=== PATIENT | female | born 1955 | race Caucasian/White ===

== ENCOUNTER 2020-09-23 15:52 | Inpatient (IN) | payer OTHER ==
[~2020-09-23] VITALS: Ht 167.6 cm; Wt 77.4 kg
[~2020-09-23 15:52] MED LIST: AMLO5 PO; DIVIGEL1 EAC1 TD; FURO20 PO; LOSA50 PO; MED FOR DEPRESSION; MEDR5 PO; METO50; OXYACE5T PO
[2020-09-23 17:03] LABS: BASOPHILS ABSOLUTE AUTO 0.02 K/mm3 (0.00-0.23); BASOPHILS PERCENT AUTO 0 % (0-2); EOSINOPHILS ABSOLUTE AUTO 0.11 K/mm3 (0.00-0.68); EOSINOPHILS PERCENT AUTO 2 % (0-6); Hemoglobin 11.1 g/dL (11.5-16.0); IMMATURE GRAN ABSOLUTE AUTO 0.06 K/mm3 (0.00-0.10); IMMATURE GRAN PERCENT AUTO 1 % (0-1); LYMPHOCYTES ABSOLUTE AUTO 1.69 K/mm3 (0.84-5.20); LYMPHOCYTES PERCENT AUTO 24 % (21-46); MONOCYTES ABSOLUTE AUTO 0.83 K/mm3 (0.16-1.47); MONOCYTES PERCENT AUTO 12 % (4-13); Mean Corpuscular HGB 33.7 pg (26.0-34.0); Mean Corpuscular HGB Conc 33.6 g/dL (31.5-36.5); Mean Corpuscular Volume 100 fL (80-100); Mean Platelet Volume 9.9 fL (9.1-12.4); NEUTROPHILS ABSOLUTE AUTO 4.31 K/mm3 (1.96-9.15); NEUTROPHILS PERCENT AUTO 61 % (41-73); Platelet Count 415 K/mm3 (150-400); RDW Coefficient Variation 14.2 % (11.7-14.2); RDW Standard Deviation 51.9 fL (35.1-46.3); Red Blood Cell Count 3.29 M/mm3 (3.80-5.20); White Blood Cell Count 7.02 K/mm3 (4.00-11.30)
[2020-09-23 17:17] LABS: Acetaminophen, Random <2.0 ug/mL (10.0-30.0); Alanine Aminotransfer (ALT/SGP 60 U/L (12-78); Albumin, Blood 2.7 g/dL (3.4-5.0); Albumin/Globulin Ratio 0.5 (0.8-1.8); Alk Phos 154 U/L (50-136); Anion Gap 7 mmol/L (6-16); Aspartate Aminotrans (AST/SGOT 70 U/L (12-37); Bilirubin, Total 0.7 mg/dL (0.1-1.0); Blood Urea Nitrogen 89 mg/dL (8-24); Bun/Creatinine Ratio 24.3 (12.0-20.0); CO2, Blood 25 mmol/L (21-32); CPK Creatine Kinase 434 U/L (26-193); Calcium, Blood 10.1 mg/dL (8.5-10.1); Chloride, Blood 96 mmol/L (98-108); Creatine Kinase MB 2.6 ng/mL (0.0-3.6); Creatine Kinase MB Index 0.6 (0.0-4.0); Creatinine, Blood 3.67 mg/dL (0.40-1.00); Ethanol (Alcohol), Blood, Med <3 mg/dL; Globulin, Blood 5.2 g/dL (2.2-4.0); Glomerular Filtration Rate 13 (60-); Glucose, Blood 125 mg/dL (70-99); Magnesium, Blood 2.4 mg/dL (1.6-2.4); Potassium, Blood 4.7 mmol/L (3.5-5.5); Salicylate <1.7 mg/dL (2.8-20.0); Sodium, Blood 128 mmol/L (136-145); Total Protein, Blood 7.9 g/dL (6.4-8.2); Troponin I <0.015 ng/mL (0.000-0.040)
[2020-09-23 17:25] LABS: Source, Urine Catheter
[2020-09-23 18:20] LABS: Appearance, Urine Cloudy (Clear); Bilirubin, Urine Neg (Neg); Blood, Urine 2+ (Neg); Color, Urine Yellow (P-Yellow); Glucose Qualitative, Urine Neg (Neg); Ketones, Urine Neg (Neg); Leukocyte Esterase, Urine 3+ (Neg); Nitrite, Urine Pos (Neg); Protein, Urine 2+ (Neg); Specific Gravity, Urine 1.015 (1.003-1.022); Urobilinogen, Urine NORM (Normal)
[2020-09-23 18:37] LABS: U Amphetamine Screen Not Detected; U Barbituate Screen Not Detected; U Benzodiazapine Screen Not Detected; U Buprenorphine Screen Not Detected; U Cannabinoids Screen Not Detected; U Cocaine Screen Not Detected; U Methadone Screen Not Detected; U Methamphetamine Screen Not Detected; U Opiates Screen DETECTED; U Oxycodone Screen Not Detected; U Phencyclidine Screen Not Detected; U Propoxyphene Screen Not Detected
[2020-09-23 18:52] LABS: Red Blood Cells, Urine TNTC /hpf (0-2); Squamous Epithelial Cells Not Seen /hpf (Few); White Blood Cells, Urine TNTC /hpf (0-5)
[2020-09-23 18:53] LABS: Bacteria Many /hpf; Renal Epithelial Few /hpf (0-Rare); Transitional Epithelial Cells Mod /hpf (0-Rare)
[2020-09-23] MEDS ORDERED: TORSE20 PO (19:16)
[2020-09-23] MEDS ORDERED: POTA10T PO (19:17)
[2020-09-23] MEDS ORDERED: THERA-D2000 UNIT PO (19:17)
[2020-09-23] MEDS ORDERED: AMLO5 PO (19:17)
[2020-09-23] MEDS ORDERED: METO100ER PO (19:17)
[2020-09-24 05:08] LABS: BASOPHILS ABSOLUTE AUTO 0.01 K/mm3 (0.00-0.23); BASOPHILS PERCENT AUTO 0 % (0-2); EOSINOPHILS ABSOLUTE AUTO 0.03 K/mm3 (0.00-0.68); EOSINOPHILS PERCENT AUTO 0 % (0-6); Hematocrit 31.4 % (33.0-51.0); Hemoglobin 10.6 g/dL (11.5-16.0); IMMATURE GRAN ABSOLUTE AUTO 0.05 K/mm3 (0.00-0.10); IMMATURE GRAN PERCENT AUTO 1 % (0-1); LYMPHOCYTES ABSOLUTE AUTO 1.16 K/mm3 (0.84-5.20); LYMPHOCYTES PERCENT AUTO 14 % (21-46); MONOCYTES ABSOLUTE AUTO 0.63 K/mm3 (0.16-1.47); MONOCYTES PERCENT AUTO 8 % (4-13); Mean Corpuscular HGB 33.7 pg (26.0-34.0); Mean Corpuscular HGB Conc 33.8 g/dL (31.5-36.5); Mean Corpuscular Volume 100 fL (80-100); Mean Platelet Volume 9.5 fL (9.1-12.4); NEUTROPHILS ABSOLUTE AUTO 6.17 K/mm3 (1.96-9.15); NEUTROPHILS PERCENT AUTO 77 % (41-73); Platelet Count 337 K/mm3 (150-400); RDW Coefficient Variation 14.1 % (11.7-14.2); RDW Standard Deviation 51.4 fL (35.1-46.3); Red Blood Cell Count 3.15 M/mm3 (3.80-5.20); White Blood Cell Count 8.05 K/mm3 (4.00-11.30)
[2020-09-24 05:35] LABS: Albumin, Blood 2.3 g/dL (3.4-5.0); Albumin/Globulin Ratio 0.5 (0.8-1.8); Bilirubin, Total 0.7 mg/dL (0.1-1.0); Bun/Creatinine Ratio 27.8 (12.0-20.0); Creatinine, Blood 2.27 mg/dL (0.40-1.00); Globulin, Blood 4.5 g/dL (2.2-4.0); Potassium, Blood 4.1 mmol/L (3.5-5.5); Total Protein, Blood 6.8 g/dL (6.4-8.2)
--- NOTE | 2020-09-24 05:42 | NUR ---
SUMMARY PT IS A/OX 2-3. PT CONFUSION WAXES AND WANES. PT HAS BEEN YELLING OUT AT TIMES AND WHEN ASKED WHAT IS WRONG SHE RESPONDS "NOTHING". PT IS INCONTINET. PT HAS BEEN VOIDING FREQUENTLY. PT HAS REQUIRED FREQUENT ATTENDS CHANGE. PT HAS BEEN DRINKING SOME FLUIDS. PT CURRENTLY AWAKE IN NO DISTRESS. CALL LIGHT IN REACH AND BED ALARM ON.
--- NOTE | 2020-09-24 15:52 | NUR ---
ADMIT: 09/23/20 DISCHARGE: DX: Altered mentation, sepsis, UTI CC:kwilcox HUI CALL: RESIDENCE: home CAREGIVER:Patience Velasco, Friend, DX: HTN, COPD, sciatica, menopausal DME: 4WW CCM: none HOME HEALTH: None SUMMARY: Admit: 09/23/20 09/24/20- per chart review with Dr. Cevallos, no plan for d/c today. She reports that pt's was found down for 10 days on the floor. Pt did get some water and food during this time. was not around to confirm this. reported later in the day that pt quit drinking alcohol about 4 months ago. Pt UDS + Opi. Pt has not been prescribed any opiates according to [place]. When she confronted the pt, she at first stated that she was not going to say anything but then she disclosed that she got opiates from her friend but she could not remember how many she got. Pt has had confusion on and off through out the day and yelling out. When asked what she needed, would respond "nothing." Per PT note, [place] with a roommate. Recommendation is for SNF/extensive rehab and they expect that pt will improve as her UTI/sepsis clears.-basilio
--- NOTE | 2020-09-24 19:20 | NUR ---
PT ALERT TO SELF. CONFUSED THROUGHOUT SHIFT. CALLS OUT OFTEN. SHE IS REDIRECTABLE. SPOKE WITH SO, HE REPORTS CLIENT QUIT DRINKING 4 MO AGO. HE REPORTS INCREASING IMOBILITY FOR THE LAST 2MO. PT REPORTS PAIN IN ALL EXTREMITIES WITH MOVEMENT. UNABLE TO TRANSFER TODAY. SO REPORTS THEY HAVE SEE MD CONCERNING THIS BUT IS UNABLE TO REPORT WHO. HE REPORTS PT WITH 2 RECENT EYE INFECTIONS TREATED WITH ANTIBIOTICS. DR. SERVIN NOTIFIED OF SO CONCERNS. PT WITH FAIR APPETITE TODAY, THIS RN PUSHED FLUIDS THROUGHOUT SHIFT. BM TODAY. REPORT GIVEN TO NOC RN
--- NOTE | 2020-09-25 05:19 | NUR ---
SUMMARY PT CIWAS AT BEGINNING OF SHIFT 8 AND 9. PT TX PER EMAR WITH PT RELAXING AND ABLE TO SLEEP. PT HAD VOIDED AT BEGINNING OF SHIFT. PT FOUND TO BE RETAINING AND BLADDER SCAN SHOWED >[address] LOPEZ CALLED AND ORDERED STRIGHT CATH AND RECHECK IN 6 HRS. PT AWAKE AND IN NO DISTRESS. CALL LIGHT IN REACH AND BED ALARM ON.
[2020-09-25 05:45] LABS: Bun/Creatinine Ratio 28.3 (12.0-20.0); Calcium, Blood 9.2 mg/dL (8.5-10.1); Creatinine, Blood 1.45 mg/dL (0.40-1.00); Potassium, Blood 3.5 mmol/L (3.5-5.5)
--- NOTE | 2020-09-25 06:29 | NUR ---
0530 PT STRIGHT CATHED. 600 ML REMOVED. PT VOIDED SMALL AMOUNT PRIOR TO CATH. PT BLADDER SCAN SHOWED 580ML REMAINING. PT ALSO HAD LITTLE PO FLUID INTAKE NOTED.
--- NOTE | 2020-09-25 15:41 | NUR ---
09/25/20- per chart review with Dr. Cevallos, pt is doing worse today. She is screaming if touched stating that she is in pain. Pt is retaining urine and was started on antibiotics. Current CIWA = 3. PT not able to see pt due to her unwillingness to participate in care. No d/c plan at this time. -basiloi
--- NOTE | 2020-09-25 16:38 | NUR ---
SHIFT SUMMARY- PT SLEPT MOST OF THIS SHIFT. SHE YELLS OUT WHEN WOKEN UP. SHE REFUSED ALL ORAL MEDICATIONS THIS SHIFT. REFUSED TO WORK WITH THERAPY. PALATIVE CARE COLSULT ORDERED. TOUCHED BASE WITH TASH JOSEPH ABOUT THE SITUATION WITH THIS PT. HER CIWAS HAVE BEEN STABLE THIS SHIFT. POST VOID BLADDERSCAN SHOWED 300ML. SHE IS REFUSING MEALS THIS SHIFT. PROVIDED SIPS OF WATER WHEN PT WAS AWAKE. SHE WENT FOR AN XRAY OF THE SHOULDER THIS AFTERNOON. HER BED IS IN THE LOW POSITION AND CALL LIGHT IS WITIN REACH.
[2020-09-26 05:27] LABS: BASOPHILS ABSOLUTE AUTO 0.02 K/mm3 (0.00-0.23); BASOPHILS PERCENT AUTO 0 % (0-2); EOSINOPHILS ABSOLUTE AUTO 0.11 K/mm3 (0.00-0.68); EOSINOPHILS PERCENT AUTO 2 % (0-6); Hematocrit 29.5 % (33.0-51.0); Hemoglobin 9.6 g/dL (11.5-16.0); IMMATURE GRAN ABSOLUTE AUTO 0.05 K/mm3 (0.00-0.10); IMMATURE GRAN PERCENT AUTO 1 % (0-1); LYMPHOCYTES ABSOLUTE AUTO 2.31 K/mm3 (0.84-5.20); LYMPHOCYTES PERCENT AUTO 38 % (21-46); MONOCYTES ABSOLUTE AUTO 0.69 K/mm3 (0.16-1.47); MONOCYTES PERCENT AUTO 11 % (4-13); Mean Corpuscular HGB 33.2 pg (26.0-34.0); Mean Corpuscular HGB Conc 32.5 g/dL (31.5-36.5); Mean Corpuscular Volume 102 fL (80-100); Mean Platelet Volume 9.3 fL (9.1-12.4); NEUTROPHILS ABSOLUTE AUTO 2.87 K/mm3 (1.96-9.15); NEUTROPHILS PERCENT AUTO 48 % (41-73); Platelet Count 296 K/mm3 (150-400); RDW Coefficient Variation 14.4 % (11.7-14.2); RDW Standard Deviation 54.3 fL (35.1-46.3); Red Blood Cell Count 2.89 M/mm3 (3.80-5.20); White Blood Cell Count 6.05 K/mm3 (4.00-11.30)
[2020-09-26 06:10] LABS: Alanine Aminotransfer (ALT/SGP 36 U/L (12-78); Albumin, Blood 2.2 g/dL (3.4-5.0); Albumin/Globulin Ratio 0.5 (0.8-1.8); Alk Phos 166 U/L (50-136); Anion Gap 7 mmol/L (6-16); Aspartate Aminotrans (AST/SGOT 46 U/L (12-37); Bilirubin, Total 0.4 mg/dL (0.1-1.0); Blood Urea Nitrogen 18 mg/dL (8-24); Bun/Creatinine Ratio 21.1 (12.0-20.0); CO2, Blood 24 mmol/L (21-32); Calcium, Blood 8.5 mg/dL (8.5-10.1); Chloride, Blood 108 mmol/L (98-108); Creatinine, Blood 0.85 mg/dL (0.40-1.00); Globulin, Blood 4.5 g/dL (2.2-4.0); Glomerular Filtration Rate >60 (60-); Glucose, Blood 106 mg/dL (70-99); Potassium, Blood 3.3 mmol/L (3.5-5.5); Sodium, Blood 139 mmol/L (136-145); Total Protein, Blood 6.7 g/dL (6.4-8.2)
--- NOTE | 2020-09-26 06:42 | NUR ---
SUMMARY PT REMAINS CONFUSED. PT HAD NOTED BM'S THIS SHIFT. PT REQUIRED STRIGHT CATH. PT HAS BEEN TRYING TO GET OUT OF BED. PT PLACED IN AJNUSZ VEST FOR SAFETY. PROVIDER AL ORDERED RESTRAINT. PT CONTINUES TO YELL OUT AND IS UNCOOPERATIVE. PT CURRENTLY SLEEPING AND IN NO DISTRESS. CALL LIGHT IN REACH AND BED ALARM ON.
--- NOTE | 2020-09-26 13:10 | NUR ---
09/26/20- Per chart review, urine culture came back positive for Ecoli. Pt has now admitted that she drinks more than a pint of Vodka per day. Pt is currently in alcohol withdrawal and she is noted to be having aggressive behaviors wtih staff, high fall risk, impulsive behavior and confusion/disoriented, so she has been put in restraints. CIWA are being being done assess pt's withdraw. PT tried to see pt today and she was yelling at therapist and unwilling to participate in therapy. -basilio
[2020-09-26 16:18] LABS: Source, Urine Catheter
[2020-09-26 16:30] LABS: Bilirubin, Urine Neg (Neg); Blood, Urine Neg (Neg); Glucose Qualitative, Urine 1+ (Neg); Ketones, Urine Neg (Neg); Leukocyte Esterase, Urine 1+ (Neg); Nitrite, Urine Neg (Neg); Protein, Urine 2+ (Neg); Urobilinogen, Urine NORM (Normal)
[2020-09-26 17:15] LABS: Appearance, Urine Clear (Clear); Color, Urine Pale Yellow (P-Yellow)
[2020-09-26 17:18] LABS: Bacteria Few /hpf; Squamous Epithelial Cells Not Seen /hpf (Few)
--- NOTE | 2020-09-26 19:26 | NUR ---
SHIFT SUMMARY- PT IS CONFUSED, SHE IS PAINFUL WHEN MOVED. SHE SLEPT INTERMITENTLY THROUGHOUT THIS SHIFT. SHE IS HAVING INC BM. LETITIA WAS PLACED THIS SHIFT FOR RETENTION. HER WAS AT BEDSIDE THIS AFTERNOON, DR. JAMA SPOKE WITH PT AND AT THAT TIME. HER PULSE WAS ELEVATED THIS SHIFT AND HER HOME METOPROLOL WAS RESTARTED. SHE IS IN RESTRAINTS DUE TO BEING IMPULSIVE AND ATTEMPTING TO GET OUT OF BED. HER BED IS IN THE LOW POSITION AND CALL LIGHT IS WITIN REACH.
--- NOTE | 2020-09-27 03:03 | NUR ---
SHIFT SUMMARY NO ACUTE CHANGES OVERNIGHT. PT REMAIN CONFUSED. SHE YELLS/SCREAM INTERMITTENTLY. SLEPT AFTER MIDNIGHT. PT IS ALERT AND ORIENT TO SELF AND . SHE HAD A 1 MED BROWN LOSE BOWEL MOVEMENT, LINEN WERE CHANGED. DONG STILL IN PLACED, INTACT, PATENT, GRAVITY ON FLOOR. PT IS ON RESTRAINTS R/T BEING IMPULSIVE AND ATTEMPTING TO GET OUT BED. CIWA SCORE FROM 0-1 ASSESSED EVERY 2 HRS. REPORT PAIN, MEDICATED ONCE FOR FENTANYL 25MCG. CALL LIGHT WITHIN REACH. BED IN LOW POSITION.
[2020-09-27 05:17] LABS: BASOPHILS ABSOLUTE AUTO 0.02 K/mm3 (0.00-0.23); BASOPHILS PERCENT AUTO 0 % (0-2); EOSINOPHILS ABSOLUTE AUTO 0.16 K/mm3 (0.00-0.68); EOSINOPHILS PERCENT AUTO 2 % (0-6); Hematocrit 27.7 % (33.0-51.0); Hemoglobin 9.2 g/dL (11.5-16.0); IMMATURE GRAN ABSOLUTE AUTO 0.05 K/mm3 (0.00-0.10); IMMATURE GRAN PERCENT AUTO 1 % (0-1); LYMPHOCYTES ABSOLUTE AUTO 2.61 K/mm3 (0.84-5.20); LYMPHOCYTES PERCENT AUTO 37 % (21-46); MONOCYTES ABSOLUTE AUTO 0.75 K/mm3 (0.16-1.47); MONOCYTES PERCENT AUTO 11 % (4-13); Mean Corpuscular HGB 33.8 pg (26.0-34.0); Mean Corpuscular HGB Conc 33.2 g/dL (31.5-36.5); Mean Corpuscular Volume 102 fL (80-100); Mean Platelet Volume 9.1 fL (9.1-12.4); NEUTROPHILS ABSOLUTE AUTO 3.57 K/mm3 (1.96-9.15); NEUTROPHILS PERCENT AUTO 50 % (41-73); Platelet Count 296 K/mm3 (150-400); RDW Coefficient Variation 14.2 % (11.7-14.2); RDW Standard Deviation 52.9 fL (35.1-46.3); Red Blood Cell Count 2.72 M/mm3 (3.80-5.20); White Blood Cell Count 7.16 K/mm3 (4.00-11.30)
[2020-09-27 05:55] LABS: Alanine Aminotransfer (ALT/SGP 30 U/L (12-78); Albumin, Blood 2.2 g/dL (3.4-5.0); Albumin/Globulin Ratio 0.5 (0.8-1.8); Alk Phos 141 U/L (50-136); Anion Gap 7 mmol/L (6-16); Aspartate Aminotrans (AST/SGOT 40 U/L (12-37); Bilirubin, Total 0.4 mg/dL (0.1-1.0); Blood Urea Nitrogen 11 mg/dL (8-24); Bun/Creatinine Ratio 13.4 (12.0-20.0); CO2, Blood 22 mmol/L (21-32); Calcium, Blood 8.2 mg/dL (8.5-10.1); Chloride, Blood 109 mmol/L (98-108); Creatinine, Blood 0.82 mg/dL (0.40-1.00); Globulin, Blood 4.1 g/dL (2.2-4.0); Glomerular Filtration Rate >60 (60-); Glucose, Blood 97 mg/dL (70-99); Magnesium, Blood 1.4 mg/dL (1.6-2.4); Phosphorus, Blood 1.5 mg/dL (2.5-4.9); Potassium, Blood 3.3 mmol/L (3.5-5.5); Sodium, Blood 138 mmol/L (136-145); Total Protein, Blood 6.3 g/dL (6.4-8.2)
--- NOTE | 2020-09-27 12:06 | NUR ---
Care transferred to Braydon RN, SBAR report given and patient moved to room 352
--- NOTE | 2020-09-27 19:11 | NUR ---
sleepy, wakes easily but often is startled, complains of pain if moved, needed to be assisted to eat, call light in reach, rm air saline locked, shared bsr with noc nurse and pt
--- NOTE | 2020-09-27 19:39 | NUR ---
SCU MONITOR VERIFIED VIDEO MONITORING IS IN PLACE
--- NOTE | 2020-09-27 21:08 | NUR ---
JANUSZ RESTRAINT RENEWAL CALLED HOSPITALIST, RENEWED NONVIOLENT JANUSZ VEST RESTRAINT ORDER ON 09/27/20 AT 2106 HRS.
--- NOTE | 2020-09-28 00:15 | NUR ---
MIDNIGHT MEDICATION PT INFORMED OF MEDICATION. PT WAS STARTLED MULTIPLE TIMES DESPITE THIS STUDENT RN EXPLAINING WHAT WAS GOING ON, YELLING OUT AND BECOMING AGITATED. PT REFUSING TO OPEN HER MOUTH FOR PUDDING WITH MEDICATION, CLENCHING HER JAW SHUT AND PRETENDING TO SLEEP. MEDICATION WASTED BY SUPERVISING RN MATTHEW LEDEZMA AND BAFFLE INSTALLER TALYA BIANCHI.
--- NOTE | 2020-09-28 01:16 | NUR ---
CIWA COMPLETE INTERVENTION ALCOHOL WITHDRAWAL COMPLETE PER PROTOCOL OF 72 HOURS WITH RESULTS LESS THAN 8.
--- NOTE | 2020-09-28 04:18 | NUR ---
SHIFT SUMMARY ADMITTED FOR ACUTE ENCEPHALOPATHY SECONDARY TO UROSEPSIS. FULL CODE. PT MOOD VERY LABILE THOUGH WITH UNDERLYING AGITATION. PT UNCOOPERATIVE WITH ASSESSMENT. NEW RESTRAINT ORDER OBTAINED AT 2105 FOR PTS JANUSZ VELA - HAS BEEN ON ALL SHIFT. PT DENIED MIDNIGHT LIBRIUM DOSE, PRETENDING TO BE ASLEEP AND IGNORING STAFF. PT WILL BE D/C'D TO SNF IF SHE REMAINS MEDICALLY STABLE.
[2020-09-28 05:16] LABS: BASOPHILS ABSOLUTE AUTO 0.03 K/mm3 (0.00-0.23); BASOPHILS PERCENT AUTO 0 % (0-2); EOSINOPHILS ABSOLUTE AUTO 0.23 K/mm3 (0.00-0.68); EOSINOPHILS PERCENT AUTO 3 % (0-6); Hematocrit 28.9 % (33.0-51.0); Hemoglobin 9.4 g/dL (11.5-16.0); IMMATURE GRAN ABSOLUTE AUTO 0.04 K/mm3 (0.00-0.10); IMMATURE GRAN PERCENT AUTO 1 % (0-1); LYMPHOCYTES ABSOLUTE AUTO 2.54 K/mm3 (0.84-5.20); LYMPHOCYTES PERCENT AUTO 32 % (21-46); MONOCYTES ABSOLUTE AUTO 0.59 K/mm3 (0.16-1.47); MONOCYTES PERCENT AUTO 7 % (4-13); Mean Corpuscular HGB 33.6 pg (26.0-34.0); Mean Corpuscular HGB Conc 32.5 g/dL (31.5-36.5); Mean Corpuscular Volume 103 fL (80-100); Mean Platelet Volume 9.2 fL (9.1-12.4); NEUTROPHILS ABSOLUTE AUTO 4.49 K/mm3 (1.96-9.15); NEUTROPHILS PERCENT AUTO 57 % (41-73); Platelet Count 356 K/mm3 (150-400); RDW Coefficient Variation 14.5 % (11.7-14.2); RDW Standard Deviation 54.8 fL (35.1-46.3); White Blood Cell Count 7.92 K/mm3 (4.00-11.30)
[2020-09-28 05:37] LABS: Albumin, Blood 2.1 g/dL (3.4-5.0); Anion Gap 7 mmol/L (6-16); Blood Urea Nitrogen 10 mg/dL (8-24); Bun/Creatinine Ratio 12.3 (12.0-20.0); CO2, Blood 22 mmol/L (21-32); Calcium, Blood 8.5 mg/dL (8.5-10.1); Chloride, Blood 111 mmol/L (98-108); Creatinine, Blood 0.81 mg/dL (0.40-1.00); Glomerular Filtration Rate >60 (60-); Glucose, Blood 101 mg/dL (70-99); Magnesium, Blood 1.9 mg/dL (1.6-2.4); Phosphorus, Blood 2.5 mg/dL (2.5-4.9); Potassium, Blood 3.4 mmol/L (3.5-5.5); Sodium, Blood 140 mmol/L (136-145)
--- NOTE | 2020-09-28 06:08 | NUR ---
CTA/COMMUTATOR INSPECTOR I HAVE ASSESSED THIS PT. I HAVE STUDIED THIS STUDENT'S DOCUMENTATION AND I AGREE. SHIFT SUMMARY IN COMMUTATOR INSPECTOR'S NOTES.
--- NOTE | 2020-09-29 00:52 | NUR ---
PAIN WITH MOVEMENT PT GETS PAINFUL WITH MOVEMENTS. PAIN MED OFFERED, PT REFUSED. CURRENTLY IN BED RESTING WATCHING TV, FACIAL EXPRESSION IS RELAXED
--- NOTE | 2020-09-29 05:08 | NUR ---
BILLING SPECIALIST SUMMARY PT IS FORGETFUL AND SCREAM OUT IN PAIN WITH MOVEMENT. MEDICATED FOR PAIN ONCE. PT RATHER HAVE TYLENOL VS FENTANYL. PT AGRESSIVE THIS MORNING AND SWUNG AT MATE CHIEF AND CUSSED AT STAFF DURING CARE THIS AM. TELE RUNNING SINUS TACH AT 107 THIS AM PER FIELD CROP I FARMWORKER. PT DENIES CHEST PAIN, SOB. CIWAS HAS BEEN STABLE. PT HAD 3-4 SMALL LOOSE MUCOUSY BM'S TOWARDS BEGINNING OF NOC SHIFT. CALL LIGHT WITHIN REACH, BED ALARM ON. WILL CONTINUE TO MONITOR.
[2020-09-29 05:55] LABS: BASOPHILS ABSOLUTE AUTO 0.02 K/mm3 (0.00-0.23); BASOPHILS PERCENT AUTO 0 % (0-2); EOSINOPHILS ABSOLUTE AUTO 0.23 K/mm3 (0.00-0.68); EOSINOPHILS PERCENT AUTO 2 % (0-6); Hemoglobin 8.8 g/dL (11.5-16.0); IMMATURE GRAN ABSOLUTE AUTO 0.07 K/mm3 (0.00-0.10); IMMATURE GRAN PERCENT AUTO 1 % (0-1); LYMPHOCYTES ABSOLUTE AUTO 2.62 K/mm3 (0.84-5.20); LYMPHOCYTES PERCENT AUTO 25 % (21-46); MONOCYTES ABSOLUTE AUTO 0.85 K/mm3 (0.16-1.47); MONOCYTES PERCENT AUTO 8 % (4-13); Mean Corpuscular HGB 33.3 pg (26.0-34.0); Mean Corpuscular HGB Conc 32.6 g/dL (31.5-36.5); Mean Corpuscular Volume 102 fL (80-100); Mean Platelet Volume 9.6 fL (9.1-12.4); NEUTROPHILS ABSOLUTE AUTO 6.61 K/mm3 (1.96-9.15); NEUTROPHILS PERCENT AUTO 64 % (41-73); Platelet Count 381 K/mm3 (150-400); RDW Coefficient Variation 14.6 % (11.7-14.2); RDW Standard Deviation 54.6 fL (35.1-46.3); Red Blood Cell Count 2.64 M/mm3 (3.80-5.20)
[2020-09-29 06:27] LABS: Albumin, Blood 2.2 g/dL (3.4-5.0); Anion Gap 8 mmol/L (6-16); Blood Urea Nitrogen 10 mg/dL (8-24); Bun/Creatinine Ratio 11.7 (12.0-20.0); CO2, Blood 21 mmol/L (21-32); Calcium, Blood 8.6 mg/dL (8.5-10.1); Chloride, Blood 110 mmol/L (98-108); Creatinine, Blood 0.86 mg/dL (0.40-1.00); Glomerular Filtration Rate >60 (60-); Glucose, Blood 119 mg/dL (70-99); Magnesium, Blood 1.7 mg/dL (1.6-2.4); Phosphorus, Blood 2.6 mg/dL (2.5-4.9); Potassium, Blood 3.1 mmol/L (3.5-5.5); Sodium, Blood 139 mmol/L (136-145)
--- NOTE | 2020-09-29 18:42 | NUR ---
SHIFT SUMMARY PT AXO X4, THOUGH EXTREMELY EMOTIONALLY LABILE. VSS THOUGH PT TACHYCARDIC, DR AWARE. VEWS SCORE CHARTED. PT DENIED PAIN WITH EACH ASSESSMENT. CIWA SCORE OF 3. MARIFER WISHES TO DISCUSS CT RESULTS WITH DR TRIVEDI, NOTIFIED. MARIFER NOTIFIED TO COME DURING VISITING HOURS TOMORROW. MRI ORDERED PER DR TRIVEDI. MRI SCREENING FORM COMPLETED AND FAXED. PT'S SPOUSE STATES THAT SHE IS EXTREMELY CLAUSTROPHOBIC BUT PATIENT DENIES THIS STATING THAT SHE HAS HAD AN MRI BEFORE. DR TRIVEDI AWARE OF THIS CONVERSATION. BED IN LOW POSITION, CALL LIGHT WITHIN REACH, BED ALARM ON. BED ODONNELL TO VOID, DARK ORANGE URINE PER MEDICAL ASSISTANT PRN.
--- NOTE | 2020-09-30 05:24 | NUR ---
SUMMARY: PT A/O X2-3 BUT IS FORGETFULL AT TIMES AND HAS LABILE MOODS. SHE BEGAN SHIFT IN [employer] SPIRITS, JOKING W/STAFF AND PLEASANT/COOPERATIVE W/CARE BUT SHIFT PROGRESSED SHE BECAME MUCH MORE AGGITATED AND RESISTANT TO ADL'S. STAFF ATTEMPTED TO MAINTAIN TURN SCHEDULE BUT PT REFUSED AT TIMES. SHE IS VERY SENSATIVE AND STARTLES TO TOUCH AND VOICE. TYLENOL WAS RECIEVED PRN FOR LEG PAIN BUT RELIEF IS QUESTIONABLE. MEPILEXES TO HEELS ARE INTACT AND LEGS REMAIN ELEVATED ON PILLOWS. SHE YELLS OUT AND CURSES AT TIMES BUT DOESN'T APPEAR TO BE IN ANY SIGNIFICANT DISTRESS IN THESE MOMENTS. SHE IS S.TACH AT 90'S-100'S ON TELEMETRY. VSS/AFEBRILE, NO ACUTE CHANGES. PT TO HAVE MRI TODAY W/FORM FAXED YESTERDAY BUT SHE WILL LIKELY NEED ANXIETY MED PRIOR D/T CLAUSTROPHOBIA. WOULD LIKE ALERTED WHEN COMPLETED TO COORDINATE HIS VISIT. WCTM AND REPORT TO DAY RN.
--- NOTE | 2020-09-30 15:50 | NUR ---
09/30/20- per chart review with Dr. Guzmán, pt is having aggressive personality changes. PT has attempted to work with the pt and due to lack of participation, cognition and being uncooperative, they are recommending decrease in services. SNF has been recommended but may not be appropriate due to behaviors. Dr. Guzmán ordered MRI today due to personality changes. is also going to ask for psych consult to bindery helper in placement of pt. She may need LTC placement. -basilio
--- NOTE | 2020-09-30 18:07 | NUR ---
SHIFT SUMMARY PT HAS LABILE EMOTIONS AND AGRESSIVE AT TIMES. PT CURSES EVERY TIME SOMEONE WAKES HER UP- PT DOES NOT PARTICIPATE ADL. REFUSED AM MEDICATIONS AND REFUSED MEALS TODAY. PT HAS JUST BEEN SLEEPING TODAY. PT HAD MRI TODAY; TALKED TO SON TODAY.THIS RN TALKED TO MARIFER TODAY, WHO IS THE NEXT TO KIN OF THIS PT. PT RECEIVED ATIVAN ONCE BEFORE MRI. BED IS IN THE LOWEST POSITION AND CALL LIGHT WITHIN REACH
--- NOTE | 2020-09-30 23:53 | NUR ---
PT T/F FROM ROOM 352 TO ROOM 353 AT 2345. PT ORIENTED TO NEW ROOM AND SHE IS FAMILIAR W/CALL SYSTEM. BED ALARM ON. NO COMPLAINTS.
--- NOTE | 2020-10-01 04:50 | NUR ---
KIERA RECIEVED PRN FOR C/O LEG PAIN, AWAITING EFFECT.
--- NOTE | 2020-10-01 05:50 | NUR ---
TYLENOL RECIEVED PRN FOR C/O LEG PAIN, AWAITING EFFECT.
--- NOTE | 2020-10-01 06:19 | NUR ---
SUMMARY: PT CONT'S TO HAVE VERY LABILE EMOTIONS. SHE BEGAN SHIFT DROWSY AND SLEEPING COMFORTABLY AFTER RECIEVING ATIVAN ON DAY SHIFT BUT AWOKE W/FLUCTUATING MOODS. AT TIMES SHE WAS PLEASANT AND COOPERATIVE W/CARE BUT WAS ALSO AGGITATED, YELLING/CURSING INTO HALLS AND REFUSING CARE. SHE SLEPT INTERMITTENTLY T/O NOCTE AND EVEN WHEN CALLING OUT APPEARED IN NO APPARENT DISTRESS. ATTENDS CHANGED PRN FOR URINARY INCONTINENCE. MEPILEXES REMAIN INTACT TO HEALS AND PT CONT'S TO REPORT BLE PAIN. TYLENOL RECIEVED PRN FOR TOLERABLE RELIEF. IV ABX RECIEVED. NO ACUTE CHANGES, VSS/AFEBRILE. WCTM AND REPORT TO DAY RN.
--- NOTE | 2020-10-01 12:55 | NUR ---
Brief supportive visit this afternoon. Spoke with Bedside RN Princess and discussed case. Princess reports Pt very labile. Pt may be friendly one moment then angry and agitated the next. Pt resting in bed upon arrival. Pt is A&OX2 and initialy denies pain. Pt breifly screams out when moving her legs. Pt's mood changes from tearful to agitation to withdrawn throughout the visit. Pt intialy reporting her 2 children are 9 and 14. Later in conversation when asked again Pt reports her children are 19 and 20. Pt reports not being but has been with her partner for over 20 years. Pt reports her partner Matt is 26 years old. Ended visit to allow Pt to rest. Spoke with Dr Guzmán and discussed case. Dr Guzmán will order seroquel HS and place consult for Dr Ayers. Palliative Care will remain available for therapeutic and supportive visits.
--- NOTE | 2020-10-01 16:04 | NUR ---
10/01/20- per chart review, pt is having fluctuating moods/personality and refusing care. Order has been placed for a psych evaluation with Dr. Ayers. -basilio
--- NOTE | 2020-10-01 18:31 | NUR ---
SHIFT SUMMARY PATIENT MEDICATED X1 FOR PAIN IN FEET AND SHOULDERS. NEW ORDERS FOR GABAPENTIN TID AND EVENING SEROQUEL. PATIENT WORKED WITH PT TODAY, ABLE TO SIT AT SIDE OF BED WITH SUPPORT FOR 45 SECONDS. PATIENT CALLED OUT OCCASSIONALLY. POST VOID BLADDER SCAN SHOWED 200 MLS. VISITED IN AFTERNOON. PALLIATIVE CARE CONSULTED. KARRI CONSULTED.
--- NOTE | 2020-10-01 19:42 | NUR ---
ASSUMPTION OF CARE. TIFFANIE OS CURRENTLY SLEEPING. HEAD WAS LEANING INTO THE SIDE RAIL AND BODY WAS TWISTED. RESPONDS TO VERBAL STIMULI AND PAIN. UPON MOVING HER SHE YELLED AND CURSED THAN FELL RIGHT BACK TO SLEEP SNORING. SHE WOULD NOT RESPOND VERBALLY WHEN I WAS TALKING TO HER BUT DID OPEN HER EYES EACH TIME. LUNG SOUNDS ARE CLEAR. HR SINUS. EDEMA IN BLE ELEVATED ON PILLOWS. WILL CONTINUE TO MONITOR. BED ALARM ON. CALL LIGHT IN REACH.
--- NOTE | 2020-10-01 21:02 | NUR ---
ATTEMPTED TO ADMINISTER NIGHT MEDS. ANYTIME I TRIED TO WAKE HER SHE YELLED OUT SOME NOT VERY NICE WORDS AND TOLD ME TO LEAVE HER ALONE, THEN FELL RIGHT BACK TO SLEEP. ATTEMPTED SEVERAL TIMES WITH SAME RESULTS. NO MEDS WERE GIVEN. CHECKED ATTENDS PATIENT WAS DRY. SHE DID HAVE A COUGH SO PUT HOB UP.
--- NOTE | 2020-10-01 21:50 | NUR ---
VIVIAN STILL SLEEPING, BED ALARM ON.
--- NOTE | 2020-10-02 05:47 | NUR ---
SHIFT SUMMARY: RESPONSIVE TO VERBAL STIMULI OR WHEN MOVING HER. WOULD NOT WAKE UP TO TAKE PM MEDS, INSTEAD YELLED AND CURSED WHEN WE TRIED. TELLING US TO LEAVE HER ALONE. THAN WOULD FALL RIGHT BACK TO SLEEP. SHE SLEPT VERY WELL THE ENTIRE SHIFT, YELLED AGAIN WHEN SCROLL SHEAR OPERATOR TRIED TO TAKE HER VITALS, THEN BACK TO SLEEP. NO ACUTE CHANGES. VSS.AFEBRILE. PAIN ONLY WITH MOVEMENT. BED ALARM ON, CALL LIGHT IN REACH.
--- NOTE | 2020-10-02 06:40 | NUR ---
NO URINE OUTPUT NOTED. ATTENDS DRY. BLADDER SCAN SHOWED 600. PLACED A STRAIGHT CATH BUT ONLY GOT 350CC OUTPUT. INFORMED DAYSHIFT.
[2020-10-02 07:56] LABS: BASOPHILS ABSOLUTE AUTO 0.05 K/mm3 (0.00-0.23); BASOPHILS PERCENT AUTO 1 % (0-2); EOSINOPHILS ABSOLUTE AUTO 0.31 K/mm3 (0.00-0.68); EOSINOPHILS PERCENT AUTO 4 % (0-6); Hematocrit 27.1 % (33.0-51.0); Hemoglobin 8.6 g/dL (11.5-16.0); IMMATURE GRAN ABSOLUTE AUTO 0.04 K/mm3 (0.00-0.10); IMMATURE GRAN PERCENT AUTO 1 % (0-1); LYMPHOCYTES PERCENT AUTO 26 % (21-46); MONOCYTES ABSOLUTE AUTO 0.63 K/mm3 (0.16-1.47); MONOCYTES PERCENT AUTO 8 % (4-13); Mean Corpuscular HGB 33.1 pg (26.0-34.0); Mean Corpuscular HGB Conc 31.7 g/dL (31.5-36.5); Mean Corpuscular Volume 104 fL (80-100); Mean Platelet Volume 9.6 fL (9.1-12.4); NEUTROPHILS ABSOLUTE AUTO 5.11 K/mm3 (1.96-9.15); NEUTROPHILS PERCENT AUTO 61 % (41-73); Platelet Count 505 K/mm3 (150-400); RDW Coefficient Variation 15.1 % (11.7-14.2); RDW Standard Deviation 57.4 fL (35.1-46.3); White Blood Cell Count 8.34 K/mm3 (4.00-11.30)
[2020-10-02 08:12] LABS: Anion Gap 5 mmol/L (6-16); Blood Urea Nitrogen 12 mg/dL (8-24); Bun/Creatinine Ratio 15.6 (12.0-20.0); CO2, Blood 25 mmol/L (21-32); Calcium, Blood 8.7 mg/dL (8.5-10.1); Chloride, Blood 109 mmol/L (98-108); Creatinine, Blood 0.77 mg/dL (0.40-1.00); Glomerular Filtration Rate >60 (60-); Glucose, Blood 110 mg/dL (70-99); Potassium, Blood 3.6 mmol/L (3.5-5.5); Sodium, Blood 139 mmol/L (136-145)
--- NOTE | 2020-10-02 12:36 | NUR ---
ASSUMED CARE FOR THIS PATIENT. ORIENTED PT TO ROOM.
--- NOTE | 2020-10-02 14:35 | NUR ---
10/02/20- PER CHART REVIEW WITH DR. TRIVEDI, PT NEEDS TO HAVE PSYCH CONSULT BEFORE SHE CAN BE D/C. WILL NEED TO TRY AND FIND PLACEMENT FOR PT. WILL REACH OUT TO [facility] FOR HELP FINDING A PLACE THAT WILL TAKE SOMEONE WITH BEHAVIORS. PER [facility] STAFF, PLACEMENT WILL HAVE TO WAIT UNTIL PSYCH EVAL IS COMPLETED TO FIND PLACEMENT FOR THE PT.-RAULITO
--- NOTE | 2020-10-02 15:01 | NUR ---
Spoke with Bedside RN Julia prior to Pt visit. Julia reports Pt's mood was much improved this AM and after lunch Pt became labile again. Pt has threatened to leave AMA. Pt also has been experiencing hallucinations. Pt resting in bed upon. Pt appears to be in a good mood, laughing and joking. Pt engages in non sensical conversation throughout the visit. Pt discusses the Pts that are next door and the constant yelling and screaming. Pt states "I slipped them some downers last night and it didn't help". Pt also states "when is the wedding" and start discussing her plan to go. Pt briefly becomes tearful then back to joking again. Palliative Care will remain available.
--- NOTE | 2020-10-02 19:56 | NUR ---
SHIFT SUMMARY PT WAS COPERATIVE FOR MOST OF SHIFT BUT WOULD HAVE BOUTS OF CRYING, YELLING AND BEING DEFENSIVE. PT HAD AUDITORY AND VISUAL HALLAUCINATIONS THROUGHOUT SHIFT. IN MORNING CONVEYOR BELT INSTALLER REPORTED PT IN A-FLUTTER RANGING FROM 125-130, IN AFTERNOON PT HAD A RUN OF V-TACH. WHEN CHECKING ON PT, SHE WAS SITTING IN BED, AND STATED SHE FELT FINE. PT WAS PLACED ON 2 MD HOLD BEFORE SHIFT CHANGE. PT BLADDER SCANED AND STRAIGHT CATH. URINE IN STRAIGHT CATH HAD A CLOT AND SOME SEDEMENT. DR. TRIVEDI NOTIFIED. VERBAL ORDER GIVEN TO STRAIGHT CATH IF BLADDER SCAN IS GREATER THAN 600ML.
--- NOTE | 2020-10-03 06:17 | NUR ---
SHIFT SUMMARY PATIENT LETHARGIC AND SLEPT ALL NIGHT. ONLY ROUSED LONG ENOUGH TO TAKE HER MEDICATIONS. IV PATENT AND FLUSHED. BED IN LOWEST POSITION WITH WHEELS LOCKED AND ALARM ON. CALL LIGHT WITHIN REACH. REPORT GIVEN TO ONCOMING RN.
--- NOTE | 2020-10-03 15:24 | NUR ---
SHIFT SUMMARY PT SLEEPING AT START OF SHIFT. EVENTUALLY WOKE FOR A LATE BREAKFAST. PT HAS BEEN AWAKE SINCE THEN. PT SCREAMS OUT OCCASSIONALLY, MOSTLY FOR NO NOTED REASON AND THEN STARTS TALKING NORMAL CONVERSATION. PT DOES C/O LEG PAIN AT TIMES; MEDICATED WITH TYLENOL. UNABLE TO VOID; ASSISTED TO BEDPAN SEVERAL TIMES. PT UNABLE TO GET OOB TO BSC. BLADDER SCANS DONE PER ORDER. P/T HERE THIS AFTERNOON TO WORK WITH PT. HAS BEEN CO-OP WITH CARE, WHEN PATIENT WITH HER. CALL LT IN REACH. BED ALARM ON FOR SAFETY.
--- NOTE | 2020-10-03 19:15 | NUR ---
DONG CATH D/C'D TODAY, AFTER BLADDER TRAINING. PT STILL UNABLE TO VOID. BLADDER SCAN DONE SEVERAL TIMES. PT NEARING 6OOcc RETENTION. SMALL AMT OF BLOODY MUCUS DRAINED FROM URETHRA THIS EVENING FOR SOME REASON. NO C/O PAIN. PT REPORTS FEELING LIKE SHE NEEDS TO "PEE", BUT CANNOT. REPORT GIVEN TO ONCOMING SHIFT.
--- NOTE | 2020-10-04 05:05 | NUR ---
SHIFT SUMMARY ASSUMED CARE OF PT AT 1900. PT IS A/OX2. HEART SOUNDS IRREGULAR, TELE SHOWS FLUTTER @ 117. LUNG SOUNDS CLEAR. PT BLADDER SCAN AT 2300 SHOWED 658. PT ALREADY HAD BLOOD FROM HER URETHRA DUE TO MULTIPLE CATHETERIZATIONS. WHEN AWAITING FOR UROJET, PT URINATED A LARGE AMOUNT IN ATTENDS. PT POST VOID SCAN SHOWED PT STILL HAD 300ML IN BLADDER. CALL LIGHT IN REACH, BED IN LOWEST POSITON.
--- NOTE | 2020-10-04 16:23 | NUR ---
SUPERVISORY AIR INTERCEPT CONTROLLER ASSESSMENT REVIEW I HAVE REVIEWED THE SUPERVISORY AIR INTERCEPT CONTROLLER'S ASSESSMENT, CONDUCTED AN ASSESSMENT OF MY OWN, AND I AGREE WITH THE STUDENT'S ASSESSMENT.
--- NOTE | 2020-10-04 18:47 | NUR ---
Shift Assessment, The patient is A/OX1 to self. She has auditory and visual hallucinations throughout shift. She is pleasent and cooperative. The patient has pain when moving BLE and she yells out. The patient is bedbound and needs reminders to use the bedpan. She is a two person assist and has upper and lower extremity weakness but us able to assist with changing position. The patient needs reminders and assistence with drinking and eating. She had no acute changes this shift. She is lying in her bed watching tv.
--- NOTE | 2020-10-05 04:21 | NUR ---
SHIFT SUMMARY ASSUMED CARE OF PT AT 1900. PT IS ALERT BUT ONLY ORIENT TO SELF. HEART SOUNDS IRREGULAR, TELE SHOWS AFLUTTER @ 114. LUNG SOUNDS CLEAR. PT HAS NO NEW COMPLAINTS. PT WISHES TO GO HOME. PT CALLS OUT WHEN TOUCHED AND EVEN IN HER SLEEP. PT WAS STRAIGHT CATHED AT 0430, BLADDER SCAN SHOWED 746. PT SLEPT DURING THE WHOLE PROCDURE. PT HAS RED DISCHARGE COMING FROM HER HAKE[place] AREA. CALL LIGHT IN REACH, BED IN LOWEST POSITON.
[2020-10-05 08:24] LABS: BASOPHILS ABSOLUTE AUTO 0.02 K/mm3 (0.00-0.23); BASOPHILS PERCENT AUTO 0 % (0-2); EOSINOPHILS PERCENT AUTO 1 % (0-6); Hematocrit 24.6 % (33.0-51.0); Hemoglobin 7.8 g/dL (11.5-16.0); IMMATURE GRAN ABSOLUTE AUTO 0.07 K/mm3 (0.00-0.10); IMMATURE GRAN PERCENT AUTO 1 % (0-1); LYMPHOCYTES ABSOLUTE AUTO 2.07 K/mm3 (0.84-5.20); LYMPHOCYTES PERCENT AUTO 22 % (21-46); MONOCYTES ABSOLUTE AUTO 0.97 K/mm3 (0.16-1.47); MONOCYTES PERCENT AUTO 10 % (4-13); Mean Corpuscular HGB 33.1 pg (26.0-34.0); Mean Corpuscular HGB Conc 31.7 g/dL (31.5-36.5); Mean Corpuscular Volume 104 fL (80-100); Mean Platelet Volume 9.7 fL (9.1-12.4); NEUTROPHILS ABSOLUTE AUTO 6.19 K/mm3 (1.96-9.15); NEUTROPHILS PERCENT AUTO 66 % (41-73); Platelet Count 504 K/mm3 (150-400); RDW Coefficient Variation 15.1 % (11.7-14.2); RDW Standard Deviation 57.3 fL (35.1-46.3); Red Blood Cell Count 2.36 M/mm3 (3.80-5.20); White Blood Cell Count 9.42 K/mm3 (4.00-11.30)
[2020-10-05 08:39] LABS: Anion Gap 5 mmol/L (6-16); Blood Urea Nitrogen 13 mg/dL (8-24); Bun/Creatinine Ratio 15.5 (12.0-20.0); CO2, Blood 25 mmol/L (21-32); Calcium, Blood 8.6 mg/dL (8.5-10.1); Chloride, Blood 109 mmol/L (98-108); Creatinine, Blood 0.84 mg/dL (0.40-1.00); Glomerular Filtration Rate >60 (60-); Glucose, Blood 93 mg/dL (70-99); Potassium, Blood 3.9 mmol/L (3.5-5.5); Sodium, Blood 139 mmol/L (136-145)
[2020-10-05 13:46] LABS: Hematocrit 28.9 % (33.0-51.0); Mean Corpuscular HGB 33.3 pg (26.0-34.0); Mean Corpuscular HGB Conc 31.1 g/dL (31.5-36.5); Mean Corpuscular Volume 107 fL (80-100); Mean Platelet Volume 9.9 fL (9.1-12.4); NRBC ABSOLUTE 0.13 K/mm3 (0.00-0.02); NRBC Auto 0.7 /100 WBC (0.0-0.2); Platelet Count 564 K/mm3 (150-400); RDW Coefficient Variation 15.3 % (11.7-14.2); RDW Standard Deviation 60.3 fL (35.1-46.3); White Blood Cell Count 17.66 K/mm3 (4.00-11.30)
[2020-10-05 14:06] LABS: BAND PERCENT MAN 1 % (0-8); BASOPHILS PERCENT MAN 0 % (0-2); EOSINOPHILS PERCENT MAN 0 % (0-6); LYMPHOCYTES ABSOLUTE MAN 6.88 K/mm3 (0.84-5.20); LYMPHOCYTES PERCENT MAN 39 % (21-46); METAMYELOCYTE ABSOLUTE MAN 0.17 K/mm3 (0.00-0.00); METAMYELOCYTE PERCENT MAN 1 % (0-0); MONOCYTES ABSOLUTE MAN 1.58 K/mm3 (0.16-1.47); MONOCYTES PERCENT MAN 9 % (4-13); SEG NEUTROPHILS PERCENT MAN 50 % (41-73); TOTAL CELLS COUNTED 100
[2020-10-05 14:08] LABS: Magnesium, Blood 1.8 mg/dL (1.6-2.4); Phosphorus, Blood 4.5 mg/dL (2.5-4.9); Troponin I 0.155 ng/mL (0.000-0.040)
[2020-10-05 14:22] LABS: Source, Urine Catheter
[2020-10-05 14:25] LABS: Bilirubin, Urine Neg (Neg); Blood, Urine 1+ (Neg); Color, Urine Yellow (P-Yellow); Glucose Qualitative, Urine Neg (Neg); Ketones, Urine Neg (Neg); Leukocyte Esterase, Urine Neg (Neg); Nitrite, Urine Neg (Neg); Protein, Urine 2+ (Neg); Specific Gravity, Urine 1.015 (1.003-1.022); Urobilinogen, Urine NORM (Normal)
[2020-10-05 14:33] LABS: Appearance, Urine Clear (Clear)
[2020-10-05 14:37] LABS: Bacteria Mod /hpf; Red Blood Cells, Urine Not Seen /hpf (0-2); Squamous Epithelial Cells Few /hpf (Few); White Blood Cells, Urine 0-2 /hpf (0-5)
--- NOTE | 2020-10-05 14:37 | NUR ---
TRANSFER SUMMARY PATIENT ALERT TO SELF THIS SHIFT. TELEMETRY CALLED TO REPORT INVERTED T-WAVE THIS AM. DR NOTIFIED. TELEMETRY CALLED LATE THIS AM TO REPORT AN APPROXIMATELY 3 SECOND INSTANCE OF TORDES DE POINTES. DR NOTIFIED, EKG ORDERED. PRIOR TO EKG BEING PERFORMED ANOTHER INSTANCE OF TORDES DE POINTES OCCURED. PATIENT WITHOUT SYMPTOMS, RESPONDING APPROPRIATELY AFTER BOTH INSTANCES. VERY SHORTLY AFTER THE SECOND INSTANCE TELE CALLED REPORTING V-TACH. NURSE ISAI SCHWAB RESPONDED AND CALLED [facility]. SEE CODE REPORT. PATIENT TRANSFERED TO ICU.
[2020-10-05 15:22] LABS: PCO2 Arterial 40.3 mmHg (35-45); PO2 Arterial 70.7 mmHg (80-100)
--- NOTE | 2020-10-05 16:21 | NUR ---
PT ARRIVAL TO ICU... AT 1346 PT ARRIVED TO ICU 13 S/P CODE BLUE V FIB ARREST. PT IS INTUBATED PRIOR TO ARRIVAL WITH A 7.5 ET TUBE THAT IS 23 AT THE TEETH. PT IS PLACED ON THE VENT AT AC:14/450/5/65% WITH O2 SATS >90%. L/S CLEAR T/O. PT IS ON THE ZOLL DURING ARRIVAL SHOWING SR W/ FREQUENT PVCs, PT HAS TRACE SWELLING TO HER BLE. PT WAS UNRESPONSIVE, PUPILS WERE 2MM, EQUAL AND SLUGGISH. PT WAS TRANSFERED TO THE ICU BED VIA SLIDER SHEET AND 4 STAFF. A TEMP DONG WAS PLACED FOR STRICT I&Os, UA WAS SENT. PT'S TEMP ON ARRIVAL WAS 101.8, BLANKETS REMOVED TO PROMOTE COOLING, ICE PACKS PLACED IN BILATERAL AXILLA. PT'S BP DURING THIS TIME WAS TRENDING DOWN TO THE 60'S/40'S. DR. FORBES CALLED AND NOTIFIED OF THE NEW HYPOTENSION, ORDERS FOR LEVOPHED OBTAINED. PT WAS GETTING A BOLUS OF NS AT THIS TIME WELL. LEVOPHED STARTED VIA PERIPHREAL IV AT 5MCG/MIN TO KEEP MAPS >65. AT 1518 LEVOPHED WAS PUT ON SB D/T IMPROVED BPs. AFTER THE NS BOLUS WAS DONE LR WAS STARTED AT 150MLS/HR. PT'S DAUGHTER AT THE BEDSIDE, SHE WAS UPDATED ON THE PT'S CONDITION AND THE PLAN OF CARE, PT'S LATER CAME WELL AND WAS UPDATED ON THE PT'S CONDITION AND PLAN OF CARE BY THIS RN AND DR. FORBES. AT 1530 THE PT STARTED TO WAKE UP, PULL AT HER ARMS AND OPEN HER EYES. PT WAS CHOKING AND GAGING ON THE ET TUBE, PROPOFOL WAS STARTED. THE PROPFOL WAS BEING TITRATED UP THE PT'S BP WAS TRENDING DOWN, LOW DOSE LEVOPHED WAS RESTARTED. A PICC LINE WAS PLACED BY [place] Chen RN. WILL CONTINUE TO MONITOR.
--- NOTE | 2020-10-05 17:44 | NUR ---
Patient Was a cardiac arrest. ACLS protocol started and pt recusitatied. Pt tranfered to icu. Family called and daughter came in. She relayed long history of ETOH abuse. Daughter states covid and loosing her business made it worse. She has not seen her mom for four years. She was very distraught by it being mothers day and seeing her mother on a vent. Theraputic time with daughter will have chaplian see her . Gaver her some resources and offered out team as a support. Family reports terrible decline in mobility and genral health the past year. pt prognosis after cardiac arrest may be poor pps score is 20%.
[2020-10-05 18:06] LABS: International Normalized Ratio 1.04; Prothrombin Time Results 11.2 Sec (9.7-11.5)
--- NOTE | 2020-10-05 19:41 | NUR ---
PT UPDATE... AT 1817 PT CONVERTED FROM NSR TO TORSADE DE POINTES, CODE BLUE WAS CALLED AND CPR WAS STARTED. (SEE CODE SHEET). PT WAS GIVEN 2MG OF IV MAG, 1 ROUND OF EPI AND WAS SHOCKED. CPR CONTINUED FOR APROX 1 MORE MINUTE BEFORE A PULSE WAS FOUND. DR. FORBES AND DR. WRIGHT (CARDIOLOGY) WERE CALLED. DR. ROBERTS ORDERED EKGs AND PLANNED TO TAKE THE PT TO THE TWIST MAKER. PT WAS ON LEVOPHED RUNNING AT 20MCG/MIN, PROPOFOL RUNNING AT 55MCG/KG/MIN AND HEPARIN RUNNING AT 13U/KG/HR. PT WAS TAKEN TO THE TWIST MAKER AT 1900. PT'S FAMILY CALLED BY NURSING APPLICATIONS SUPPORT SPECIALIST DMITRY. REPORT GIVEN TO YELITZA JOSEPH.
--- NOTE | 2020-10-05 19:46 | NUR ---
pt had repeat cardiac event. will review prognsosis with family. pt risk for sudden is high.
--- NOTE | 2020-10-05 22:00 | NUR ---
ASSUMED PT CARE FROM [facility] AT 1900 PT INTUBATED AND SEDATED. VENT AC 14, VT 450, PEEP 5, FIO2 50%. PROPOFOL AT 55MCG/KG/MIN, HEPARIN AT 13 UNITS/KG/HR, LR AT 150ML/HR, AND LEVOPHED INFUSING AT 20MCG/MIN VIA PICC LINE TO LEFT UPPER ARM. CUSTOM STUDIO COORDINATOR STAFF AT BEDSIDE DURING SHIFT REPORT S/P CARDIAC ARREST AND PT NEEDING TO PROCEED WITH ANGIO. PT ARRIVED TO CUSTOM STUDIO COORDINATOR AROUND 1919. ORDERS WERE OBTAINED FROM DR. ROBERTS TO STOP HEPARIN GTT AND START ISUPREL AT 2MCG/MIN. LEVOPHED TITRATED DOWN TO 10MCG/MIN SECONDARY TO SBP [address] ROBERTS PROCEEDED WITH ACCESSING RIGHT RADIAL SITE FOR ANGIO. AFTER ANGIO RESULTS WERE OBTAINED, THE DECISION WAS MADE TO PLACE BALLOON PUMP SECONDARY TO SEVERE STENOSIS AND LESIONS TO MID LAD. HOWEVER, UNABLE TO PLACE BALLOON PUMP SECONDARY TO SMALL FEMORAL ARTERIES TO BOTH SIDES. DECISION WAS THEN MADE TO PLACE COOLING CATHETER TO RIGHT FEMORAL VEIN. ARTERIAL LINE LEFT IN PLACE TO RIGHT RADIAL SITE FOR CLOSER MONITORING IN THE ICU. BOTH SITES CHECKED WITH CUSTOM STUDIO COORDINATOR STAFF PRIOR TO TRANSFER BACK TO UNIT. RIGHT GROIN SITE OOZING SLIGHTLY; HOWEVER, NO HEMATOMA NOTED. UPON ARRIVAL BACK TO UNIT AROUND 2044 PT WAS CONNECTED TO MONITOR AND SUPPLIES WERE OBTAINED TO INTIATE COOLING AND CONNECT ARTERIAL LINE. COOLING INTIATED AT 2100 WITH TARGET TEMP OF [address] ROBERTS CAME TO BEDSIDE TO DISCUSS FURTHER TRANSFER TO [facility]. NEW ORDERS TO CONTINUE ISUPREL GTT TO MAINTAIN HR 100-120 AND TO TITRATE LEVOPHED TO MAINTAIN MAP >65. ORDERS TO RESTART HEPARIN PER PHARMACY CONSULT WELL. DR. FORBES ALSO CALLED ASKING FOR AN UPDATE WITH NEW ORDERS TO CHANGE RATE OF LR FROM 150 TO 100MLS/HR. HEPARIN RESTARTED AT 13 UNITS/KG/HR PER PHARMACY. BP'S REMAINED VERY LABILE AND LEVOPHED WAS TITRATED ANYWHERE FROM 1-5MCG/MIN. ISUPREL REMAINED AT 2MCG/MIN. PROPOFOL REMAINED AT 55MCG/KG/MIN. DR. ROBERTS CALLED UNIT TO CONFIRM TRANSFER AND ASKED THAT THIS NURSE OR NICK MELENDEZ, WHO WAS ASSISTING WITH TRANSFER, CALL FAMILY TO OBTAIN CONSENT PRIOR TO CONTINUING WITH TRANSFER. THIS NURSE SPOKE WITH , MARIFER, WHO CONSENTED TO CONTINUE WITH TRANSFER. NICK MELENDEZ WHOM WAS SITTING NEXT TO ME WHEN PHONE CALL WAS MADE CONFIRMED CONSENT AND PROCEEDED WITH TRANSFER PAPERWORK. PT REMAINS STABLE AT THIS TIME. PLAN IS TO HAVE REACH TRANSPORT VIA AIR. SEE SHIFT SUMMARY FOR FURTHER DETAILS REGARDING IN DEPTH ASSESSMENT.
--- NOTE | 2020-10-05 22:45 | NUR ---
REACH CONTACTED REGARDING TRANSFER ETA 10 MIN
--- NOTE | 2020-10-05 23:12 | NUR ---
REACH HAS ARRIVED REPORT GIVEN TO MARY. EXTRA BAG OF LEVOPHED HAS BEEN OBTAINED, WELL A BOTTLE OF PROPOFOL.
--- NOTE | 2020-10-05 23:30 | NUR ---
CALLED REPORT TO OPAL CONNELLY AT [facility].
--- NOTE | 2020-10-05 23:50 | NUR ---
REACH HAS LEFT UNIT. TRANSPORTING VIA HELIC[facility]TER.
--- NOTE | 2020-10-06 00:02 | NUR ---
CALL TO MARIFER REGARDING PT TRANSPORT. LEFT MESSAGE REGARDING WHAT ROOM PT WOULD BE GOING TO AND WHAT NURSE WOULD BE TAKING CARE OF HER. LEFT NUMBER TO RETURN CALL TO UNIT IF HE WAS TO HAVE ANY FURTHER QUESTIONS.
--- NOTE | 2020-10-06 00:03 | NUR ---
PT DID LEAVE UNIT WITH ALL BELONGINGS, INCLUDING RING THAT WAS IN PLACE TO LEFT RING FINGER.
== END 2020-10-05 23:50 | disposition short-term general hospital (02) | DRG 871 ==
LOC: ER 15:52 → ICUW 19:15 → MEDS 19:15 → ICUW 10-05 13:45
PROVIDERS: Emergency Medicine; Internal Medicine; Internal Medicine Cardiovascular Disease; Internal Medicine Critical Care Medicine; Internal Medicine Gastroenterology; Student in an Organized Health Care Education/Training Program; ADMIT Internal Medicine
PROC: 5A12012 Performance of Cardiac Output, Single, Manual (ICD-10-PCS; principal; 2020-10-05)
PROC: 4A023N7 Measurement of Cardiac Sampling and Pressure, Left Heart, Percutaneous Approach (ICD-10-PCS; 2020-10-05)
PROC: B2111ZZ Fluoroscopy of Multiple Coronary Arteries using Low Osmolar Contrast (ICD-10-PCS; 2020-10-05)
PROC: 3E033XZ Introduction of Vasopressor into Peripheral Vein, Percutaneous Approach (ICD-10-PCS; 2020-10-05)
PROC: 0BH17EZ Insertion of Endotracheal Airway into Trachea, Via Natural or Artificial Opening (ICD-10-PCS; 2020-10-05)
PROC: 5A1935Z Respiratory Ventilation, Less than 24 Consecutive Hours (ICD-10-PCS; 2020-10-05)
DX: A41.51 Sepsis due to Escherichia coli [E. coli] (principal); I46.9 Cardiac arrest, cause unspecified; J96.01 Acute respiratory failure with hypoxia; I21.4 Non-ST elevation (NSTEMI) myocardial infarction; G92 Toxic encephalopathy; N17.9 Acute kidney failure, unspecified; N39.0 Urinary tract infection, site not specified; I42.9 Cardiomyopathy, unspecified; F10.139 Alcohol abuse with withdrawal, unspecified; F11.13 Opioid abuse with withdrawal; E83.42 Hypomagnesemia; E83.39 Other disorders of phosphorus metabolism; R33.9 Retention of urine, unspecified; E87.6 Hypokalemia; M79.604 Pain in right leg; M25.511 Pain in right shoulder; I10 Essential (primary) hypertension; M25.562 Pain in left knee; M25.561 Pain in right knee; F11.129 Opioid abuse with intoxication, unspecified; R79.89 Other specified abnormal findings of blood chemistry; D53.9 Nutritional anemia, unspecified; F32.9 Major depressive disorder, single episode, unspecified; Z79.899 Other long term (current) drug therapy; Z87.891 Personal history of nicotine dependence; Z88.8 Allergy status to other drugs, medicaments and biological substances
CPT/HCPCS: 31500; 36415; 36556; 36569; 36600; 51701; 51702; 70450; 70551; 71045; 73030; 73560-LT; 73560-RT; 76700; 76937; 80048; 80053; 80069; 81001; 82140; 82550; 82553; 82803; 82947; 83605; 83690; 83735; 83880; 84100; 84145; 84443; 84484; 85025; 85347; 85610; 85730; 87077; 87086; 87186; 92950; 92978; 93005; 93010; 93306; 93458; 94002; 96365; 96375; 97110; 97112; 97162; 97530; 99285-25; A9270; C1751; C1753; C1769; C1887; C1894; G0480; J0282; J0696; J1644; J1650; J2001; J2060; J2370; J2704; J3010; J3475; J7030; J7040; J7050; J7060; J7120; Q9967